=== PATIENT | male | born 1975 | race Caucasian/White ===

== ENCOUNTER 2024-12-30 18:16 | Inpatient (IN) | payer MEDICARE ==
[~2024-12-30] VITALS: Ht 175.3 cm; Wt 95.3 kg
[~2024-12-30 18:16] MED LIST: CELLCEPT500 MG PO; COMBIGAN EYE DR10 ML; HYDROCODONE-AP1 EAC8 PO; OXYCODONE APAP; PRISTIQ ER50 MG PO; PROGRAF1 MG; TRAMADOL HCL50 M1; VOLTAREN5 ML; Z.0.LISINOPRIL40 MG PO; Z.0.NEXIUM40 MG PO; Z.0.RESTASIS1 EACH; Z.0.SINGULAIR10 MG PO; Z.0.TIZANIDINE HCL4 PO; Z.0.ZOLPIDEM TARTRA1 PO; Z.2.VENLAFAXINE HCL7 PO; [UNRECOGNIZED DRUG - OTHER]; [UNRECOGNIZED DRUG - OTHER] PO; [UNRECOGNIZED DRUG - OTHER] PO; [UNRECOGNIZED DRUG - OTHER] PO
[2024-12-30 19:47] LABS: BASOPHILS % 0.1 % (0.0-1.0); EOSINOPHILS % 0.3 % (0.0-6.0); HEMATOCRIT 41.7 % (38.2-49.6); HEMOGLOBIN 15.3 g/dL (14.0-18.0); LYMPHOCYTES # (AUTO) 1.7 (1.0-3.2); LYMPHOCYTES % 12.2 % (18.0-39.1); MEAN CORPUSCULAR HEMOGLOBIN 32.3 pg (28-32); MEAN CORPUSCULAR HGB CONC 36.7 g/dL (31-35); MONOCYTES # (AUTO) 0.9 (0.2-0.8); MONOCYTES % 6.4 % (4.4-11.3); NEUTROPHILS # (AUTO) 11.3 (2.1-6.9); NEUTROPHILS % 80.6 % (38.7-80.0); PLATELET COUNT 261 x10e3/uL (140-360); RED BLOOD COUNT 4.74 x10e6/uL (4.3-5.7); RED CELL DISTRIBUTION WIDTH 12.1 % (11.7-14.4); WHITE BLOOD COUNT 14.02 x10e3/uL (4.8-10.8)
[2024-12-30 20:07] LABS: ALBUMIN 4.5 g/dL (3.5-5.0); ALBUMIN/GLOBULIN RATIO 1.5 (0.8-2.0); ANION GAP 15.1 mmol/L (8-16); CALCIUM 8.7 mg/dL (8.4-10.2); CREATININE, SERUM 1.05 mg/dL (0.72-1.25); POTASSIUM 4.1 mmol/L (3.5-5.1); TOTAL PROTEIN 7.5 g/dL (6.5-8.1)
[2024-12-30 20:13] LABS: TROPONIN I 0.017 ng/mL (0-0.300)
[2024-12-30] MEDS ORDERED: IOPAMIDOL 370 MG/ML 100 ML INFUS..BTL INJ ONE (20:16)
[2024-12-30 20:50] VITALS: PULSE 83; RESP 19; TEMP 98.5
[2024-12-30] MEDS: ONDANSETRON HCL INJ 2MG/ML 2ML 2 MG/ML VIAL IV STA (21:12)
[2024-12-30] MEDS: FAMOTIDINE 20 MG/2 ML VIAL IV STA (21:12)
[2024-12-30] MEDS: SODIUM CHLORIDE 0.9% 1000ML 1,000 ML IV STA (21:12)
[2024-12-30 22:15] VITALS: BP 164/94; PULSE 84; RESP 18; TEMP 99.2; O2SAT 97
[2024-12-30 22:21] VITALS: BP 164/94; PULSE 84; RESP 18; TEMP 99.2; O2SAT 99
[2024-12-30] MEDS: Morphine 4mg INJECTION 4 MG/ML INJ IV PRN (23:11)
[2024-12-30] MEDS: SODIUM CHLORIDE 0.9% 1000ML 1,000 ML IV SCH (23:22)
[2024-12-31] MEDS: ONDANSETRON HCL INJ 2MG/ML 2ML 2 MG/ML VIAL IV PRN (02:46)
[2024-12-31 03:13] VITALS: BP 121/86; PULSE 98; RESP 18; TEMP 98.7; O2SAT 95
[2024-12-31] MEDS ORDERED: OMEPRAZOLE40 MG PO (04:32)
[2024-12-31] MEDS ORDERED: CYCLOPENTOLATE H2 ML OP (04:32)
[2024-12-31] MEDS ORDERED: HUMULIN R100 UNIT/2 INJ (04:32)
[2024-12-31] MEDS ORDERED: ACETAZOLAMIDE500 M1 PO (04:32)
[2024-12-31 06:04] LABS: BASOPHILS % 0.1 % (0.0-1.0); EOSINOPHILS % 0.2 % (0.0-6.0); HEMATOCRIT 42.1 % (38.2-49.6); LYMPHOCYTES # (AUTO) 1.8 (1.0-3.2); LYMPHOCYTES % 12.3 % (18.0-39.1); MEAN CORPUSCULAR HEMOGLOBIN 32.5 pg (28-32); MEAN CORPUSCULAR HGB CONC 35.6 g/dL (31-35); MEAN CORPUSCULAR VOLUME 91.1 fL (81-99); MONOCYTES # (AUTO) 1.1 (0.2-0.8); MONOCYTES % 7.2 % (4.4-11.3); NEUTROPHILS # (AUTO) 11.9 (2.1-6.9); NEUTROPHILS % 79.9 % (38.7-80.0); PLATELET COUNT 196 x10e3/uL (140-360); RED BLOOD COUNT 4.62 x10e6/uL (4.3-5.7); RED CELL DISTRIBUTION WIDTH 12.3 % (11.7-14.4); WHITE BLOOD COUNT 14.93 x10e3/uL (4.8-10.8)
[2024-12-31 06:35] LABS: ALBUMIN 4.1 g/dL (3.5-5.0); ALBUMIN/GLOBULIN RATIO 1.8 (0.8-2.0); ANION GAP 14.7 mmol/L (8-16); CALCIUM 8.2 mg/dL (8.4-10.2); CREATININE, SERUM 0.83 mg/dL (0.72-1.25); POTASSIUM 3.7 mmol/L (3.5-5.1); TOTAL PROTEIN 6.4 g/dL (6.5-8.1)
[2024-12-31 07:35] VITALS: BP 142/80; PULSE 98; RESP 16; TEMP 98.1; O2SAT 100
[2024-12-31 08:02] VITALS: BP 142/80; PULSE 98; RESP 16; TEMP 98.1; O2SAT 100
[2024-12-31 11:10] VITALS: BP 140/67; PULSE 92; RESP 19; TEMP 97.9; O2SAT 95
[2024-12-31] MEDS: PANTOPRAZOLE SOD 40 MG TABEC PO SCH (14:45)
[2024-12-31] MEDS: METOCLOPRAMIDE HCL 10 MG TAB PO ONE (14:46)
[2024-12-31] MEDS ORDERED: CYCLOPENTOLATE HCL 1% OPTH SOLN 2ML BTL OP SCH (15:00)
[2024-12-31 15:22] VITALS: BP 122/68; PULSE 86; RESP 17; TEMP 97.9; O2SAT 97
[2024-12-31] MEDS: TACROLIMUS 1 MG CAP PO SCH (17:00)
[2024-12-31] MEDS: MYCOPHENOLATE MOFETIL 250 MG CAP PO SCH (17:00)
[2024-12-31 20:00] VITALS: BP 130/70; PULSE 60; RESP 18; TEMP 100.7; O2SAT 96
[2024-12-31] MEDS: CYCLOPENTOLATE HCL 1% OPTH SOLN 2ML BTL OP SCH (21:21)
[2025-01-01] VITALS (9 sets, daily range): BP systolic 124–155; BP diastolic 66–84; PULSE 97–110; RESP 16–20; TEMP 97.3–99.7; O2SAT 94–99
[2025-01-01 06:59] LABS: BASOPHILS % 0.2 % (0.0-1.0); EOSINOPHILS % 0.1 % (0.0-6.0); HEMATOCRIT 40.7 % (38.2-49.6); HEMOGLOBIN 14.5 g/dL (14.0-18.0); LYMPHOCYTES # (AUTO) 1.7 (1.0-3.2); LYMPHOCYTES % 9.3 % (18.0-39.1); MEAN CORPUSCULAR HEMOGLOBIN 32.7 pg (28-32); MEAN CORPUSCULAR HGB CONC 35.6 g/dL (31-35); MEAN CORPUSCULAR VOLUME 91.7 fL (81-99); MONOCYTES # (AUTO) 1.6 (0.2-0.8); MONOCYTES % 8.6 % (4.4-11.3); NEUTROPHILS # (AUTO) 14.6 (2.1-6.9); NEUTROPHILS % 81.2 % (38.7-80.0); PLATELET COUNT 210 x10e3/uL (140-360); RED BLOOD COUNT 4.44 x10e6/uL (4.3-5.7); RED CELL DISTRIBUTION WIDTH 12.2 % (11.7-14.4); WHITE BLOOD COUNT 17.96 x10e3/uL (4.8-10.8)
[2025-01-01 07:28] LABS: ALBUMIN 3.3 g/dL (3.5-5.0); ANION GAP 15.5 mmol/L (8-16); BILIRUBIN,TOTAL 1.8 mg/dL (0.2-1.2); CALCIUM 8.2 mg/dL (8.4-10.2); CHOL/HDL RATIO 2.5 (3.9-4.7); CREATININE, SERUM 0.85 mg/dL (0.72-1.25); POTASSIUM 3.5 mmol/L (3.5-5.1); TOTAL PROTEIN 6.5 g/dL (6.5-8.1)
[2025-01-01] MEDS: PANTOPRAZOLE SOD 40 MG TABEC PO SCH (08:17)
[2025-01-01] MEDS: ACETAZOLAMIDE PO SCH (08:21)
[2025-01-01] MEDS: SUCRALFATE 1 GM TAB PO SCH (17:35)
[2025-01-01] MEDS: WHEAT DEXTRIN 80 GM POWDER PO SCH (17:36)
[2025-01-01] MEDS: CITRATE OF MAGNESIA 300ML BOTTLE PO ONE (17:36)
[2025-01-01 17:58] LABS: CLARITY,URINE TURBID (CLEAR); COLOR,URINE YELLOW (YELLOW); GLUCOSE, URINE NEGATIVE (NEGATIVE); KETONES,URINE NEGATIVE (NEGATIVE); LEUKOCYTE ESTERASE ,URINE NEGATIVE (NEGATIVE); NITRITE,URINE NEGATIVE (NEGATIVE); PH,URINE 7.5 (5 - 7); PROTEIN,URINE DIPSTICK 2+ (NEGATIVE); URINE UROBILINOGEN >=8 mg/dL (0.2 - 1)
[2025-01-01 17:59] LABS: BACTERIA,URINE FEW /HPF; BILIRUBIN,URINE SMALL (NEGATIVE); EPITHELIAL CELLS,URINE FEW /LPF; RBC,URINE >50 /HPF (0-5)
[2025-01-02] VITALS (7 sets, daily range): BP systolic 127–152; BP diastolic 77–88; PULSE 87–105; RESP 18–20; TEMP 97.9–99.9; O2SAT 95–100
[2025-01-02 06:56] LABS: BASOPHILS % 0.2 % (0.0-1.0); EOSINOPHILS % 0.1 % (0.0-6.0); HEMATOCRIT 35.3 % (38.2-49.6); HEMOGLOBIN 12.9 g/dL (14.0-18.0); LYMPHOCYTES % 6.1 % (18.0-39.1); MEAN CORPUSCULAR HEMOGLOBIN 32.6 pg (28-32); MEAN CORPUSCULAR HGB CONC 36.5 g/dL (31-35); MEAN CORPUSCULAR VOLUME 89.1 fL (81-99); MONOCYTES # (AUTO) 1.5 (0.2-0.8); MONOCYTES % 9.2 % (4.4-11.3); NEUTROPHILS # (AUTO) 13.7 (2.1-6.9); NEUTROPHILS % 82.7 % (38.7-80.0); PLATELET COUNT 165 x10e3/uL (140-360); RED BLOOD COUNT 3.96 x10e6/uL (4.3-5.7)
[2025-01-02 07:26] LABS: ANION GAP 13.1 mmol/L (8-16); CALCIUM 7.9 mg/dL (8.4-10.2); CREATININE, SERUM 0.8 mg/dL (0.72-1.25)
[2025-01-02 07:33] LABS: POTASSIUM 3.1 mmol/L (3.5-5.1)
[2025-01-02] MEDS: POLYETHYLENE GLYCOL 3350 17 GM PACK PO SCH (08:23)
[2025-01-02] MEDS: CITRATE OF MAGNESIA 300ML BOTTLE PO ONE (09:44)
[2025-01-02] MEDS: TRIMETHOPRIM/SULFAMETHOXAZOLE 160-800 MG TAB PO SCH (09:44)
[2025-01-02] MEDS ORDERED: HYOSCYAMINE 0.125 MG TAB PO SCH (10:00)
[2025-01-02] MEDS: HYOSCYAMINE 0.125 MG TAB PO PRN (11:15)
[2025-01-03] VITALS: BP 150/80; PULSE 92; RESP 20; TEMP 99.1; O2SAT 97
[2025-01-03 04:38] VITALS: BP 151/90; PULSE 90; RESP 19; TEMP 99; O2SAT 99
[2025-01-03 07:21] LABS: HEMATOCRIT 32.7 % (38.2-49.6); HEMOGLOBIN 12.2 g/dL (14.0-18.0); RED BLOOD COUNT 3.79 x10e6/uL (4.3-5.7); WHITE BLOOD COUNT 16.13 x10e3/uL (4.8-10.8)
[2025-01-03 07:22] LABS: BASOPHILS % 0.1 % (0.0-1.0); EOSINOPHILS # (AUTO) 0.1 (0.0-0.4); EOSINOPHILS % 0.4 % (0.0-6.0); LYMPHOCYTES # (AUTO) 1.2 (1.0-3.2); LYMPHOCYTES % 7.2 % (18.0-39.1); MEAN CORPUSCULAR HEMOGLOBIN 32.2 pg (28-32); MEAN CORPUSCULAR HGB CONC 37.3 g/dL (31-35); MEAN CORPUSCULAR VOLUME 86.3 fL (81-99); MONOCYTES # (AUTO) 1.6 (0.2-0.8); MONOCYTES % 9.9 % (4.4-11.3); NEUTROPHILS # (AUTO) 13.1 (2.1-6.9); NEUTROPHILS % 81.3 % (38.7-80.0); PLATELET COUNT 187 x10e3/uL (140-360); RED CELL DISTRIBUTION WIDTH 12.1 % (11.7-14.4)
[2025-01-03 07:33] LABS: BLOOD UREA NITROGEN 16.43 mg/dL (7-26); CALCIUM 7.8 mg/dL (8.4-10.2); CREATININE, SERUM 0.73 mg/dL (0.72-1.25)
[2025-01-03 08:57] VITALS: BP 170/82; PULSE 85; RESP 20; TEMP 98.2; O2SAT 99
[2025-01-03 09:00] VITALS: BP 170/82; PULSE 85; RESP 20; TEMP 98.2; O2SAT 99
[2025-01-03] MEDS: POTASSIUM CHLORIDE 10MEQ/100ML 100 ML IV ONE ×2 (13:37→17:08)
[2025-01-03] MEDS ORDERED: GLYCOPYRROLATE INJ 0.2 MG/ML VIAL ONE (15:02)
[2025-01-03] MEDS ORDERED: PROPOFOL IV EMULSION 10 MG/ML 20 ML VIAL ONE (15:02)
[2025-01-03] MEDS ORDERED: LIDOCAINE HCL 2% LOCAL INJ 5 ML SDV VIAL INJ ONE (15:02)
[2025-01-03] MEDS ORDERED: MIDAZOLAM HCL 2 MG/2 ML VIAL ONE (15:02)
[2025-01-03] MEDS ORDERED: FENTANYL CITRATE/PF 100MCG/2 ML INJ ONE (15:06)
[2025-01-03] MEDS ORDERED: ONDANSETRON HCL INJ 2MG/ML 2ML 2 MG/ML VIAL ONE (15:08)
[2025-01-03] MEDS ORDERED: METOCLOPRAMIDE HCL 10 MG/2ML VIAL ONE (15:08)
[2025-01-03 17:19] VITALS: BP 158/88; PULSE 93; RESP 20; TEMP 99.1; O2SAT 98
[2025-01-03 20:00] VITALS: BP 132/85; PULSE 79; RESP 19; TEMP 99.7; O2SAT 98
[2025-01-03] MEDS: TEMAZEPAM 15 MG CAP PO PRN (21:08)
[2025-01-04] VITALS (8 sets, daily range): BP systolic 119–157; BP diastolic 70–96; PULSE 74–88; RESP 16–20; TEMP 97.6–100.4; O2SAT 96–100
[2025-01-04 07:40] LABS: BASOPHILS % 0.2 % (0.0-1.0); EOSINOPHILS # (AUTO) 0.1 (0.0-0.4); EOSINOPHILS % 0.6 % (0.0-6.0); HEMATOCRIT 35.1 % (38.2-49.6); LYMPHOCYTES # (AUTO) 1.4 (1.0-3.2); LYMPHOCYTES % 8.1 % (18.0-39.1); MEAN CORPUSCULAR HEMOGLOBIN 31.7 pg (28-32); MEAN CORPUSCULAR VOLUME 85.6 fL (81-99); MONOCYTES # (AUTO) 1.8 (0.2-0.8); MONOCYTES % 10.6 % (4.4-11.3); NEUTROPHILS # (AUTO) 13.7 (2.1-6.9); NEUTROPHILS % 79.5 % (38.7-80.0); PLATELET COUNT 243 x10e3/uL (140-360); RED CELL DISTRIBUTION WIDTH 12.1 % (11.7-14.4); WHITE BLOOD COUNT 17.19 x10e3/uL (4.8-10.8)
[2025-01-04 07:51] LABS: ANION GAP 14.2 mmol/L (8-16); CALCIUM 8.2 mg/dL (8.4-10.2); CREATININE, SERUM 0.71 mg/dL (0.72-1.25)
[2025-01-04 08:28] LABS: POTASSIUM 3.2 mmol/L (3.5-5.1)
[2025-01-04 11:05] LABS: MAGNESIUM 1.9 MG/DL (1.3-2.1); PHOSPHORUS 0.9 MG/DL (2.3-4.7)
[2025-01-04] MEDS: POTASSIUM CHLORIDE 10MEQ EA PO ONE (12:49)
[2025-01-04] MEDS ORDERED: POTASSIUM PHOSPHATE 30 MM in SODIUM CHLORIDE 0.9% 250ML 250 ML IV SCH (13:00)
[2025-01-04] MEDS: POTASSIUM PHOSPHATE 30 MM in SODIUM CHLORIDE 0.9% 250ML 250 ML IV ONE (13:59)
[2025-01-05] VITALS (9 sets, daily range): BP systolic 117–161; BP diastolic 77–91; PULSE 78–88; RESP 18–19; TEMP 97.8–98.5; O2SAT 97–99
[2025-01-05 06:09] LABS: BASOPHILS # (AUTO) 0.1 (0.0-0.1); BASOPHILS % 0.3 % (0.0-1.0); EOSINOPHILS # (AUTO) 0.2 (0.0-0.4); EOSINOPHILS % 0.8 % (0.0-6.0); HEMATOCRIT 37.7 % (38.2-49.6); HEMOGLOBIN 13.8 g/dL (14.0-18.0); LYMPHOCYTES # (AUTO) 2.1 (1.0-3.2); LYMPHOCYTES % 9.9 % (18.0-39.1); MEAN CORPUSCULAR HEMOGLOBIN 31.7 pg (28-32); MEAN CORPUSCULAR HGB CONC 36.6 g/dL (31-35); MEAN CORPUSCULAR VOLUME 86.7 fL (81-99); MONOCYTES # (AUTO) 2.2 (0.2-0.8); MONOCYTES % 10.5 % (4.4-11.3); NEUTROPHILS # (AUTO) 15.8 (2.1-6.9); NEUTROPHILS % 75.4 % (38.7-80.0); PLATELET COUNT 287 x10e3/uL (140-360); RED BLOOD COUNT 4.35 x10e6/uL (4.3-5.7); RED CELL DISTRIBUTION WIDTH 12.2 % (11.7-14.4); WHITE BLOOD COUNT 20.95 x10e3/uL (4.8-10.8)
[2025-01-05 06:42] LABS: ANION GAP 15.5 mmol/L (8-16); CALCIUM 8.7 mg/dL (8.4-10.2); CREATININE, SERUM 0.82 mg/dL (0.72-1.25); POTASSIUM 3.5 mmol/L (3.5-5.1)
[2025-01-05] MEDS ORDERED: SODIUM CHLORIDE 0.9% IV ONE (09:35)
[2025-01-05] MEDS ORDERED: SODIUM PHOSPHATE IV ONE ×2 (09:35)
[2025-01-05] MEDS ORDERED: SODIUM CHLORIDE IV ONE (09:35)
[2025-01-05] MEDS ORDERED: NACL IV ONE (09:35)
[2025-01-05] MEDS: POTASSIUM CHLORIDE 10MEQ EA PO ONE (09:57)
[2025-01-05] MEDS: SODIUM CHLORIDE 0.9% IV ONE (09:58)
[2025-01-05] MEDS: SODIUM PHOSPHATE IV ONE (09:58)
[2025-01-05 10:36] LABS: BAND NEUTROPHILS % (MANUAL) 3 %; EOSINOPHILS % (MANUAL) 3 % (0-7); LYMPHOCYTES % (MANUAL) 12 % (19-48); METAMYELOCYTES % (MANUAL) 1 % (0-0); MONOCYTES % (MANUAL) 5 % (3.4-9.0); MYELOCYTES % (MANUAL) 1 % (0-0); NEUTROPHILS % (MANUAL) 75 % (40-74); PLATELET ESTIMATE ADEQUATE
[2025-01-05 10:37] LABS: PLATELET MORPHOLOGY COMMENT NORMAL; RBC MORPHOLOGY COMMENT NORMAL
[2025-01-05] MEDS: CITRATE OF MAGNESIA 300ML BOTTLE PO ONE (14:20)
[2025-01-06] VITALS (8 sets, daily range): BP systolic 95–151; BP diastolic 73–85; PULSE 76–88; RESP 18–20; TEMP 97.6–99; O2SAT 97–100
[2025-01-06 05:56] LABS: BASOPHILS # (AUTO) 0.1 (0.0-0.1); BASOPHILS % 0.5 % (0.0-1.0); EOSINOPHILS # (AUTO) 0.2 (0.0-0.4); EOSINOPHILS % 0.9 % (0.0-6.0); HEMATOCRIT 39.4 % (38.2-49.6); HEMOGLOBIN 14.3 g/dL (14.0-18.0); LYMPHOCYTES # (AUTO) 2.6 (1.0-3.2); LYMPHOCYTES % 11.7 % (18.0-39.1); MEAN CORPUSCULAR HGB CONC 36.3 g/dL (31-35); MEAN CORPUSCULAR VOLUME 88.1 fL (81-99); MONOCYTES # (AUTO) 2.6 (0.2-0.8); MONOCYTES % 11.7 % (4.4-11.3); NEUTROPHILS # (AUTO) 15.6 (2.1-6.9); NEUTROPHILS % 70.3 % (38.7-80.0); PLATELET COUNT 301 x10e3/uL (140-360); RED BLOOD COUNT 4.47 x10e6/uL (4.3-5.7); RED CELL DISTRIBUTION WIDTH 12.8 % (11.7-14.4); WHITE BLOOD COUNT 22.13 x10e3/uL (4.8-10.8)
[2025-01-06 06:13] LABS: ANION GAP 14.6 mmol/L (8-16); CALCIUM 8.6 mg/dL (8.4-10.2); CREATININE, SERUM 0.99 mg/dL (0.72-1.25); PHOSPHORUS 2.2 MG/DL (2.3-4.7); POTASSIUM 3.6 mmol/L (3.5-5.1)
[2025-01-06 07:26] LABS: BAND NEUTROPHILS % (MANUAL) 2 %; LYMPHOCYTES % (MANUAL) 9 % (19-48); METAMYELOCYTES % (MANUAL) 2 % (0-0); MONOCYTES % (MANUAL) 5 % (3.4-9.0); NEUTROPHILS % (MANUAL) 78 % (40-74); PLATELET ESTIMATE ADEQUATE; PLATELET MORPHOLOGY COMMENT NORMAL; RBC MORPHOLOGY COMMENT NORMAL; REACTIVE LYMPHOCYTES 4
[2025-01-06] MEDS: PEG (High)/E-LYTE SOLN 4,000 ML BTL PO ONE (18:19)
[2025-01-07 03:06] VITALS: BP 121/78; PULSE 79; RESP 18; TEMP 98.9; O2SAT 96
[2025-01-07 05:49] LABS: BASOPHILS # (AUTO) 0.1 (0.0-0.1); BASOPHILS % 0.6 % (0.0-1.0); EOSINOPHILS # (AUTO) 0.3 (0.0-0.4); EOSINOPHILS % 1.5 % (0.0-6.0); HEMATOCRIT 38.9 % (38.2-49.6); HEMOGLOBIN 13.9 g/dL (14.0-18.0); LYMPHOCYTES # (AUTO) 3.3 (1.0-3.2); LYMPHOCYTES % 16.9 % (18.0-39.1); MEAN CORPUSCULAR HEMOGLOBIN 31.5 pg (28-32); MEAN CORPUSCULAR HGB CONC 35.7 g/dL (31-35); MEAN CORPUSCULAR VOLUME 88.2 fL (81-99); MONOCYTES # (AUTO) 2.4 (0.2-0.8); MONOCYTES % 12.4 % (4.4-11.3); NEUTROPHILS # (AUTO) 12.4 (2.1-6.9); NEUTROPHILS % 63.2 % (38.7-80.0); PLATELET COUNT 310 x10e3/uL (140-360); RED BLOOD COUNT 4.41 x10e6/uL (4.3-5.7); RED CELL DISTRIBUTION WIDTH 12.7 % (11.7-14.4); WHITE BLOOD COUNT 19.67 x10e3/uL (4.8-10.8)
[2025-01-07 06:19] LABS: ALBUMIN 3.1 g/dL (3.5-5.0); ANION GAP 16.6 mmol/L (8-16); BILIRUBIN,DIRECT 0.7 mg/dL (0.0-0.5); BILIRUBIN,INDIRECT 0.8 mg/dL (0.3-1.2); BILIRUBIN,TOTAL 1.5 mg/dL (0.2-1.2); CALCIUM 8.4 mg/dL (8.4-10.2); CREATININE, SERUM 1.05 mg/dL (0.72-1.25); POTASSIUM 3.6 mmol/L (3.5-5.1); TOTAL PROTEIN 6.3 g/dL (6.5-8.1)
[2025-01-07 08:00] VITALS: BP 121/78; PULSE 79; RESP 18; TEMP 98.9; O2SAT 96
[2025-01-07 09:05] VITALS: BP 121/71; PULSE 91; RESP 18; TEMP 98.1; O2SAT 97
[2025-01-07 13:21] VITALS: BP 130/76; PULSE 72; RESP 18; TEMP 98.2; O2SAT 98
[2025-01-07] MEDS ORDERED: PROPOFOL IV EMULSION 10 MG/ML 20 ML VIAL ONE ×3 (13:25→15:10)
[2025-01-07] MEDS ORDERED: LIDOCAINE HCL 2% LOCAL INJ 5 ML SDV VIAL INJ ONE (13:25)
[2025-01-07] MEDS ORDERED: GLUCAGON FOR INJ 1 MG VIAL ONE (15:02)
[2025-01-07] MEDS ORDERED: FENTANYL CITRATE/PF 100MCG/2 ML INJ ONE (15:06)
[2025-01-07] MEDS ORDERED: OMEPRAZOLE40 MG PO (18:05)
[2025-01-07 18:34] LABS: CHOL/HDL RATIO 5.3 (3.9-4.7)
[2025-01-07 18:36] VITALS: BP 95/69; PULSE 76; RESP 20; TEMP 98.7; O2SAT 99
[2025-01-07 18:55] LABS: HIV 1&2 AB SCREEN NON-REACTIVE (NONREACTIVE); HIV- 1 P24 AG SCREEN NON-REACTIVE (NONREACTIVE)
[2025-01-07 18:56] LABS: FERRITIN 1096.37 ng/mL (21.81-274.66); FREE THYROXINE INDEX 2.1489 (1.4-3.8); T3 UPTAKE 32.96 % (22.5-37.0); T4 (THYROXINE) 6.52 ug/dL (4.5-10.9); THYROID STIMULATING HORMONE 1.569 uIU/mL (0.350-4.940)
== END 2025-01-07 19:00 | disposition home or self-care (01) | DRG 391 ==
LOC: ER 18:39 → ERHOLD 21:23 → MED/SURG3 22:13
PROVIDERS: ADMIT Internal Medicine; ATTEND Internal Medicine
PROC: 0DB78ZX Excision of Stomach, Pylorus, Via Natural or Artificial Opening Endoscopic, Diagnostic (ICD-10-PCS; 2025-01-03)
PROC: 0DB98ZX Excision of Duodenum, Via Natural or Artificial Opening Endoscopic, Diagnostic (ICD-10-PCS; 2025-01-03)
PROC: 0DB68ZX Excision of Stomach, Via Natural or Artificial Opening Endoscopic, Diagnostic (ICD-10-PCS; principal; 2025-01-03 14:59)
PROC: 0DBM8ZX Excision of Descending Colon, Via Natural or Artificial Opening Endoscopic, Diagnostic (ICD-10-PCS; 2025-01-07)
PROC: 0DBB8ZX Excision of Ileum, Via Natural or Artificial Opening Endoscopic, Diagnostic (ICD-10-PCS; 2025-01-07)
DX: K29.60 Other gastritis without bleeding (principal); K85.90 Acute pancreatitis without necrosis or infection, unspecified; D84.9 Immunodeficiency, unspecified; K25.9 Gastric ulcer, unspecified as acute or chronic, without hemorrhage or perforation; K29.80 Duodenitis without bleeding; E83.39 Other disorders of phosphorus metabolism; K21.9 Gastro-esophageal reflux disease without esophagitis; E87.6 Hypokalemia; E78.5 Hyperlipidemia, unspecified; R11.2 Nausea with vomiting, unspecified; K76.0 Fatty (change of) liver, not elsewhere classified; K44.9 Diaphragmatic hernia without obstruction or gangrene; Z94.7 Corneal transplant status; T39.395A Adverse effect of other nonsteroidal anti-inflammatory drugs [NSAID], initial encounter; H54.8 Legal blindness, as defined in USA; Z79.4 Long term (current) use of insulin; Z79.69 Long term (current) use of other immunomodulators and immunosuppressants
CPT/HCPCS: 36415; 43239; 45380; 74177; 80048; 80053; 80061; 81001; 82150; 82248; 82550; 82728; 82948; 83540; 83690; 83735; 84100; 84155; 84436; 84443; 84466; 84479; 84484; 85025; 86039; 87040; 87086; 87390; 88305; 88342; 93005; 99284; G0433; G0435; J1610; J2003; J2250; J2270; J2405; J2765; J3480; J7030; J7040; J7050; J7507; Q9967